=== PATIENT | female | born 1935 | race Caucasian/White ===

== ENCOUNTER 2017-04-03 16:33 | Inpatient (IN) | payer OTHER ==
[~2017-04-03] VITALS: Ht 162.6 cm; Wt 71.0 kg
[~2017-04-03 16:33] MED LIST: AMARYL1 MG PO; AMARYL2 MG PO; ANTIVERT25 MG PO; ASPIRIN E.C.81 M1 PO; Aspirin E.C. PO; CIPRO500 MG PO; CLOPIDOGREL75 MG PO; COZAAR100 MG PO; CYANOCOBALAM1000 MCG PO; Cipro PO; Cozaar PO; DYAZIDE, MA1 CAPSULE PO; Dyazide, Maxzide 37. PO; FISH OIL 1,0001 EAC7 PO; FISH OIL 1,001000 M1 PO; FISH OIL300 MG PO; FLAGYL500 MG PO; FLEXERIL10 MG PO; FOLIC ACID1 MG PO; Flagyl PO; IRON325 MG PO; KETOROLAC TROME10 MG PO; LEVAQUIN500 MG PO; LIDODERM 5% P1 PATCH TD; LO-DOSE ASPIRIN81 M1 PO; LOSARTAN POTASS50 MG PO; MAXZIDE 37.5 M1 EACH PO; METRONIDAZOLE500 MG PO; Miralax, Glycolax PO; Motrin PO; NOVOLOG 10100 UNITS/ SC; NOVOLOG PE100 UNITS/ SC; NovoLOG Pen 3 ml SC; OMEPRAZOLE20 M2 PO; PRAVACHOL20 MG PO; PREDNISONE5 MG PO; PRILOSEC20 MG PO; RAYOS5 MG PO; SIMVASTATIN20 MG PO; TORADOL10 MG PO; TRADJENTA5 MG PO; TRAMADOL HCL50 MG PO; TRIAMTERENE-HC1 EACH PO; TYLENOL EXTRA500 MG PO; ULTRAM50 MG PO; VITAMIN B-6100 MG PO; ZANTAC150 MG PO; ZOFRAN4 MG PO; ZOVIRAX200 MG PO; Zovirax PO
[2017-04-03 17:33] LABS: HEMATOCRIT 27.3 % (36.0-46.0); MCH 29.2 PG (29.0-34.0); MCHC 34.1 G/DL (30.0-36.0); MCV 85.6 FL (83-99); MEAN PLAT.VOLUME 9.4 uM^3 (9.5-12.4); PLATELET COUNT 247 K/uL (156-360); RBC DIS.WIDTH-CV 13.3 % (11.8-14.6); RBC DIS.WIDTH-SD 41.5 % (39-53); RED BLOOD COUNT 3.19 M/uL (3.80-5.20); WHITE BLOOD COUNT 6.3 K/uL (4.1-10.2)
[2017-04-03 17:45] LABS: CHLORIDE 96 mEq/L (99-109); POTASSIUM 4.3 mEq/L (3.7-5.4); SODIUM 127 mEq/L (136-147)
[2017-04-03 17:47] LABS: GLUCOSE 101 mg/dL (70-99)
[2017-04-03 17:48] LABS: ANION GAP 10 MEQ/L (2-14)
[2017-04-03 17:51] LABS: GFR ESTIMATE (CALCULATED) 25 mL/min/
[2017-04-03 17:52] LABS: UREA NITROGEN (BUN) 26 mg/dL (9-23)
[2017-04-03 18:34] LABS: MAGNESIUM 1.6 mg/dL (1.3-2.7)
[2017-04-03] MEDS ORDERED: LEVAQUIN500 MG PO (19:40)
[2017-04-03] MEDS ORDERED: FLUZONE HI180 MCG/08 IM (19:40)
[2017-04-03] MEDS ORDERED: VENTOLIN HFA18 GM IH (19:41)
[2017-04-03] MEDS ORDERED: DOXYCYCLINE HY100 MG PO (19:41)
[2017-04-03] MEDS ORDERED: BOOST PLUS237 ML PO (19:42)
[2017-04-03 21:58] VITALS: BP 157/72
[2017-04-03 23:39] VITALS: BP 129/58
[2017-04-04 03:53] VITALS: BP 152/60
[2017-04-04 06:30] LABS: HEMATOCRIT 24.2 % (36.0-46.0); MCH 28.4 PG (29.0-34.0); MCHC 32.6 G/DL (30.0-36.0); MCV 87.1 FL (83-99); MEAN PLAT.VOLUME 9.7 uM^3 (9.5-12.4); PLATELET COUNT 208 K/uL (156-360); RBC DIS.WIDTH-CV 13.3 % (11.8-14.6); RBC DIS.WIDTH-SD 42.5 % (39-53); RED BLOOD COUNT 2.78 M/uL (3.80-5.20); WHITE BLOOD COUNT 4.9 K/uL (4.1-10.2)
[2017-04-04 06:53] LABS: ANION GAP 9 MEQ/L (2-14); CHLORIDE 100 MEQ/L (99-109); GFR ESTIMATE (CALCULATED) 33 mL/min/; GLUCOSE 95 mg/dL (70-99); POTASSIUM 4.3 MEQ/L (3.7-5.4); SAMPLE HEMOLYSIS CHECK 0; SAMPLE ICTERIC CHECK 0; SAMPLE LIPEMIA CHECK 0; SODIUM 130 MEQ/L (136-147); UREA NITROGEN (BUN) 23 mg/dL (9-23)
[2017-04-04] MEDS ORDERED: COLACE100 MG PO (08:19)
[2017-04-04 08:40] VITALS: BP 130/65
[2017-04-04 11:55] VITALS: BP 147/59
[2017-04-04 16:31] LABS: FERRITIN 159 NG/ML (10-291)
[2017-04-04 16:52] LABS: IRON 93 MCG/DL (35-150)
[2017-04-04 17:10] VITALS: BP 133/59
[2017-04-04 17:13] LABS: POINT-OF-CARE METER ID UU14208753
[2017-04-04 18:00] LABS: HEMATOCRIT 24.1 % (36.0-46.0); IMM.RETIC FRACTION 19.4 % (3-19); MCV 87.3 FL (83-99); RETICULOCYTE COUNT 1.8 % (0.5-1.8)
[2017-04-04 18:22] LABS: ALKALINE PHOSPHATASE 52 IU/L (3-129); ANION GAP 8 MEQ/L (2-14); CHLORIDE 97 MEQ/L (99-109); GFR ESTIMATE (CALCULATED) 35 mL/min/; GLUCOSE 133 mg/dL (70-99); LACTATE DEHYDROGENASE 179 IU/L (20-246); POTASSIUM 4.2 MEQ/L (3.7-5.4); SAMPLE HEMOLYSIS CHECK 0; SAMPLE ICTERIC CHECK 0; SAMPLE LIPEMIA CHECK 0; SODIUM 128 MEQ/L (136-147); TOTAL BILIRUBIN 0.5 MG/DL (0.0-1.0); UREA NITROGEN (BUN) 22 mg/dL (9-23)
[2017-04-04 19:55] VITALS: BP 140/63
[2017-04-04 21:19] LABS: POINT-OF-CARE METER ID UU14208753
[2017-04-05 00:12] VITALS: BP 116/56
[2017-04-05 06:17] LABS: HEMATOCRIT 24.3 % (36.0-46.0); MCH 29.1 PG (29.0-34.0); MCHC 33.3 G/DL (30.0-36.0); MCV 87.4 FL (83-99); MEAN PLAT.VOLUME 9.6 uM^3 (9.5-12.4); PLATELET COUNT 211 K/uL (156-360); RBC DIS.WIDTH-CV 13.3 % (11.8-14.6); RBC DIS.WIDTH-SD 42.9 % (39-53); RED BLOOD COUNT 2.78 M/uL (3.80-5.20); WHITE BLOOD COUNT 5.6 K/uL (4.1-10.2)
[2017-04-05 06:27] LABS: POINT-OF-CARE METER ID UU14188577
[2017-04-05 06:36] LABS: ANION GAP 8 MEQ/L (2-14); CHLORIDE 100 MEQ/L (99-109); GFR ESTIMATE (CALCULATED) 35 mL/min/; POTASSIUM 4.5 MEQ/L (3.7-5.4); SAMPLE HEMOLYSIS CHECK 0; SAMPLE ICTERIC CHECK 0; SAMPLE LIPEMIA CHECK 0; SODIUM 130 MEQ/L (136-147); UREA NITROGEN (BUN) 22 mg/dL (9-23)
[2017-04-05 06:44] LABS: GLUCOSE 94 mg/dL (70-99)
[2017-04-05 07:51] VITALS: BP 143/60
[2017-04-05 12:46] LABS: HEMATOCRIT 25.8 % (36.0-46.0); MCV 87.5 FL (83-99)
== END 2017-04-05 15:51 | disposition home or self-care (01) | DRG 682 ==
LOC: EME 16:33 → EDOF 19:51 → 3EAST 19:51 → ENRESERV 19:54 → 3EAST 21:30
PROVIDERS: Hospitalist; Internal Medicine Hematology & Oncology; Physician Assistant
DX: N17.9 Acute kidney failure, unspecified (principal); E87.1 Hypo-osmolality and hyponatremia; J18.9 Pneumonia, unspecified organism; E86.0 Dehydration; E86.1 Hypovolemia; E11.22 Type 2 diabetes mellitus with diabetic chronic kidney disease; I12.9 Hypertensive chronic kidney disease with stage 1 through stage 4 chronic kidney disease, or unspecified chronic kidney disease; N18.9 Chronic kidney disease, unspecified; I25.10 Atherosclerotic heart disease of native coronary artery without angina pectoris; D63.1 Anemia in chronic kidney disease; J84.10 Pulmonary fibrosis, unspecified; Z79.82 Long term (current) use of aspirin; Z95.5 Presence of coronary angioplasty implant and graft; Z87.442 Personal history of urinary calculi; Z80.6 Family history of leukemia
CPT/HCPCS: 71020; 80048; 80053; 82272; 82607; 82728; 82746; 82948; 83540; 83615; 83735; 84466; 85014; 85018; 85027; 85045; 99281; 99285; J1644; J1815; J2405; J7030; J7050

== ENCOUNTER → 2017-07-18 | Outpatient (CLI) | payer OTHER ==
[~2017-07-18] MED LIST changes: +APRESOLINE10 MG PO; +BOOST PLUS237 ML PO; +COLACE100 MG PO; +DELTASONE20 M1 PO; +DOXYCYCLINE HY100 MG PO; +FLUZONE HI180 MCG/08 IM; +FOLGARD1 TABLET PO; +METOPROLOL SUCC25 MG PO; +NIFEDIPINE ER30 MG PO; +VENTOLIN HFA18 GM IH
== END | disposition home or self-care (01) ==
LOC: AMB 07:38
PROC: 03BT0ZX Excision of Left Temporal Artery, Open Approach, Diagnostic (ICD-10-PCS; principal; 2017-07-18)
DX: R51 Headache (principal)
CPT/HCPCS: 88305

== ENCOUNTER 2017-07-24 19:58 | Emergency (ER) | payer OTHER ==
[~2017-07-24] VITALS: Ht 162.6 cm; Wt 69.9 kg
[2017-07-24 20:35] LABS: HEMATOCRIT 31.4 % (36.0-46.0); HEMOGLOBIN 10.2 G/DL (11.9-15.5); MCH 29.5 PG (29.0-34.0); MCHC 32.5 G/DL (30.0-36.0); MCV 90.8 FL (83-99); PLATELET COUNT 138 K/uL (156-360); RBC DIS.WIDTH-CV 15.7 % (11.8-14.6); RED BLOOD COUNT 3.46 M/uL (3.80-5.20)
[2017-07-24 20:43] LABS: CHLORIDE 99 mEq/L (99-109); POTASSIUM 4.6 mEq/L (3.7-5.4); SODIUM 131 mEq/L (136-147)
[2017-07-24 20:44] LABS: GLUCOSE 265 mg/dL (70-99)
[2017-07-24 20:48] LABS: CREATININE 1.6 mg/dL (0.6-1.3); GFR ESTIMATE (CALCULATED) 33 mL/min/
[2017-07-24 20:49] LABS: UREA NITROGEN (BUN) 25 mg/dL (9-23)
[2017-07-24 21:49] LABS: ABS NEUTROPHIL COUNT 8.5; ANISOCYTOSIS 1+; BAND NEUTROPHILS 10.9 % (0-8.0); BASOPHILS 0.9 %; EOSINOPHIL ABS CT 0.1; EOSINOPHILS 0.9 % (0-5.0); LYMPHOCYTES 3.6 % (15.0-45.0); MACROCYTES 1+; METAMYELOCYTES 0.9 %; MICROCYTOSIS 1+; MONOCYTES 15.5 % (0-9.0); MYELOCYTES 0.9 %; SEG.NEUTROPHILS 66.4 % (46.0-76.0)
[2017-07-24 22:26] LABS: APPEARANCE CLEAR ((CLEAR)); BILIRUBIN NEGATIVE; BLOOD NEGATIVE; COLOR YELLOW ((YELLOW)); GLUCOSE (STRIP) 50; KETONES NEGATIVE; LEUKOCYTES MODERATE; NITRITE NEGATIVE; PROTEIN (STRIP) 30; SPECIFIC GRAVITY 1.015 (1.000-1.030); UROBILINOGEN 0.2 MG/DL (0.2-1.0)
[2017-07-24 22:29] LABS: BACTERIA RARE /HPF; EPITHELIAL CELLS RARE /HPF; MUCUS NONE SEEN /LPF; RED BLOOD CELLS 0-5 /HPF (0-5); WHITE BLOOD CELLS 15-20 /HPF (0-5)
[2017-07-24] MEDS ORDERED: CIPRO500 MG PO (22:35)
[2017-07-24 23:11] VITALS: BP 125/93
== END 2017-07-24 23:15 | disposition home or self-care (01) ==
LOC: EME 19:58
PROVIDERS: Emergency Medicine
DX: S02.32XA Fracture of orbital floor, left side, initial encounter for closed fracture (principal); H11.32 Conjunctival hemorrhage, left eye; S00.12XA Contusion of left eyelid and periocular area, initial encounter; W01.198A Fall on same level from slipping, tripping and stumbling with subsequent striking against other object, initial encounter; N39.0 Urinary tract infection, site not specified; J32.0 Chronic maxillary sinusitis; I10 Essential (primary) hypertension; E11.9 Type 2 diabetes mellitus without complications; Z79.84 Long term (current) use of oral hypoglycemic drugs; Z79.82 Long term (current) use of aspirin; Z79.52 Long term (current) use of systemic steroids; Z87.442 Personal history of urinary calculi; Z85.038 Personal history of other malignant neoplasm of large intestine
CPT/HCPCS: 70450; 70486; 71045; 80048; 81003; 85025; 93005

== ENCOUNTER 2017-11-27 09:43 | Emergency (ER) | payer OTHER ==
[~2017-11-27] VITALS: Ht 162.6 cm; Wt 68.1 kg
[2017-11-27] MEDS ORDERED: NAPROSYN500 MG PO (13:51)
[2017-11-27 14:10] VITALS: BP 146/64
== END 2017-11-27 14:10 | disposition home or self-care (01) ==
LOC: EME 09:43
DX: M17.11 Unilateral primary osteoarthritis, right knee (principal); I10 Essential (primary) hypertension; Z79.82 Long term (current) use of aspirin; Z79.84 Long term (current) use of oral hypoglycemic drugs; Z79.52 Long term (current) use of systemic steroids; Z87.442 Personal history of urinary calculi; Z87.19 Personal history of other diseases of the digestive system; Z86.19 Personal history of other infectious and parasitic diseases; Z85.038 Personal history of other malignant neoplasm of large intestine; Z90.49 Acquired absence of other specified parts of digestive tract; Z88.5 Allergy status to narcotic agent
CPT/HCPCS: 73564; 99281; 99284